=== PATIENT | female | born 1990 ===

== ENCOUNTER 2023-02-10 13:42 | Outpatient (CLI) | payer OTHER | END 2023-02-10 17:23 | disposition home or self-care (01) | LOC: PRENATAL 13:42 | PROVIDERS: ATTEND Obstetrics & Gynecology Maternal & Fetal Medicine | DX: O36.80X0 Pregnancy with inconclusive fetal viability, not applicable or unspecified (principal); Z36.9 Encounter for antenatal screening, unspecified; Z3A.11 11 weeks gestation of pregnancy ==

== ENCOUNTER 2023-02-21 10:29 | Emergency (ER) | payer OTHER ==
[~2023-02-21] VITALS: Ht 160 cm; Wt 115.7 kg
== END 2023-02-21 18:21 | disposition home or self-care (01) ==
LOC: ER 10:29
DX: O20.9 Hemorrhage in early pregnancy, unspecified (principal); Z3A.13 13 weeks gestation of pregnancy